=== PATIENT | female | born 1985 | race Caucasian/White ===

== ENCOUNTER → 2017-10-09 16:49 | Emergency (ER) | payer MEDICAID, OTHER ==
[2017-10-09 16:59] VITALS: BP 136/71
--- NOTE | 2017-10-09 19:26 | UC ---
Basim Kellogg Nikita, scribed for Leonides Ny MD on 10/09/17 at 1714 . Ear Complaint HPI - HPI Summary HPI Summary: This patient is a 32 year old F presenting to [facility] with a chief complaint of L ear pain and dizziness since 5 days ago. The L ear pain is described as pressure and constant. The dizziness is intermittent with episodes that last a couple seconds (2 episodes today). The patient rates the pain 4/10 in severity. Symptoms aggravated by nothing. Symptoms alleviated by Ibuprofen (relieves pain for only a couple hours then returns). - History of Current Complaint Chief Complaint: UCEar Stated Complaint: PRESSURE BEHIND EAR, AND DIZZINESS Time Seen by Provider: 10/09/17 17:02 Hx Obtained From: Patient Hx Last Menstrual Period: one week ago Onset/Duration: Sudden Onset, Lasting Days, Still Present Severity Initially: Moderate Severity Currently: Moderate Pain Intensity: 4 Pain Scale Used: 0-10 Numeric Aggravating Factors: Nothing Alleviating Factors: OTC Meds - ibuprofen (relieves for only a couple hours) - Allergies/Home Medications Allergies/Adverse Reactions: Allergies Allergy/AdvReac Type Severity Reaction Status Date / Time No Known Allergies Allergy Verified 10/09/17 17:00 Home Medications: Home Medications Ibuprofen TAB* [Motrin TAB* 600 MG] 600 mg PO DAILY 10/09/17 [History Confirmed 10/09/17] PMH/Surg Hx/FS Hx/Imm Hx Endocrine History: Other Other Endocrine History: No DM Cardiovascular History: Other Other Cardiovascular History: No CAD, HTN - Surgical History Surgical History: Yes Surgery Procedure, Year, and Place: TUBAL LIGATION JANUARY 2013 - Family History Known Family History: Positive: Hypertension, Diabetes - Social History Alcohol Use: Occasionally Substance Use Type: None Smoking Status (MU): Current Every Day Smoker Review of Systems ENT: Ear Ache - L ear pain (pressure) Neurological: Other - dizziness (intermittent with episodes that last a couple seconds) All Other Systems Reviewed And Are Negative: Yes Physical Exam - Summary Physical Exam Summary: VITAL SIGNS: Reviewed. GENERAL: ~Patient is a well-developed and nourished FEMALE who is lying comfortable in the stretcher. ~Patient is not in any acute respiratory distress. HEAD AND FACE: Normocephalic. EYES: PERRLA, EOMI x 2. EARS: Hearing grossly intact. Left TM is erythematous and bulging. MOUTH: Oropharynx within normal limits. NECK: Supple, trachea is midline, no adenopathy, no JVD, no carotid bruit. CHEST: Symmetric, no tenderness at palpation LUNGS: Clear to auscultation bilaterally. No wheezing or crackles. CVS: Regular rate and rhythm, S1 and S2 present, no murmurs or gallops appreciated. ABDOMEN: Soft, non-tender. Bowel sounds are normal. No abdominal abnormal pulsations. EXTREMITIES: Full ROM in all major joints, no edema, no cyanosis or clubbing. NEURO: Alert and oriented x 3. No acute neurological deficits. Speech is normal and follows commands. SKIN: Dry and warm Triage Information Reviewed: Yes Vital Signs: Initial Vital Signs Temp 97.9 F 10/09/17 16:57 Pulse 74 10/09/17 16:57 Resp 12 10/09/17 16:57 BP 136/71 10/09/17 16:57 Pulse Ox 99 10/09/17 16:57 Vital Signs Reviewed: Yes Ear Complaint Course/Dx - Course Course Of Treatment: This patient is a 32 year old F presenting to [facility] with a chief complaint of L ear pain and dizziness since 5 days ago. The patient will be given Rx for Augmentin for dx of otitis media. She will be discharged home with instructions to follow up with her PCP. The pt is hemodynamically stable, alert and oriented x3. Patient was instructed to return to the urgent care or go to ER immediately if any of the symptoms return or worsens. Plan of care was discussed with the patient, and patient understands and agrees. All questions were answered to patient satisfaction. There were no further complaints or concerns. - Differential Dx/Diagnosis Differential Diagnosis/HQI/PQRI: Otitis Media Provider Diagnoses: otitis media Discharge - Sign-Out/Discharge Documenting (check all that apply): Discharge - Discharge Plan Condition: Stable Disposition: HOME Prescriptions: Amoxicillin/Clavulanate TAB* [Augmentin TAB 875*] 875 mg PO BID #20 tab Referrals: [facility] [place] [facility] [Outside] No Primary Care Phys,NOPCP [Primary Care Provider] - The documentation as recorded by the Basim rivas Nikita accurately reflects the service I personally performed and the decisions made by , Leonides Ny MD.
== END | disposition home or self-care (01) ==
LOC: UCEAST 16:49
DX: H66.92 Otitis media, unspecified, left ear (principal); R42 Dizziness and giddiness; F17.210 Nicotine dependence, cigarettes, uncomplicated
CPT/HCPCS: 99202; G0463

== ENCOUNTER 2019-01-01 17:47 | Emergency (ER) | payer OTHER ==
[2019-01-01 18:02] VITALS: BP 116/60
--- NOTE | 2019-01-01 19:58 | UC ---
Lower Extremity/Ankle HPI - HPI Summary HPI Summary: 33-year-old woman comes in with a chief complaint of right lower leg pain and swelling. Is been going on for more than a week. Bit of pain and swelling is in the lower calf primarily on the medial posterior aspect. Pain is worse with movement and palpation. Patient does not know of any specific trauma. No complaint of shortness of breath chest pain. No fevers or chills feels well otherwise. Has taken some ibuprofen. - History of Current Complaint Chief Complaint: UCLowerExtremity Stated Complaint: SOFT TISSUE Time Seen by Provider: 01/01/19 19:40 Hx Last Menstrual Period: [id number] Pain Intensity: 3 - Allergies/Home Medications Allergies/Adverse Reactions: Allergies Allergy/AdvReac Type Severity Reaction Status Date / Time No Known Allergies Allergy Verified 10/09/17 17:00 PMH/Surg Hx/FS Hx/Imm Hx Previously Healthy: Yes - Surgical History Surgical History: Yes Surgery Procedure, Year, and Place: TUBAL LIGATION JANUARY 2013 - Family History Known Family History: Positive: Hypertension, Diabetes - Social History Alcohol Use: Rare Substance Use Type: None Smoking Status (MU): Current Some Day Smoker Review of Systems All Other Systems Reviewed And Are Negative: Yes Constitutional: Positive: Negative Skin: Positive: Negative Eyes: Positive: Negative ENT: Positive: Negative Respiratory: Positive: Negative Cardiovascular: Positive: Negative Gastrointestinal: Positive: Negative Motor: Positive: Negative Neurovascular: Positive: Negative Musculoskeletal: Positive: Other: - SEE HPI Neurological: Positive: Negative Psychological: Positive: Negative Is Patient Immunocompromised?: No Physical Exam Triage Information Reviewed: Yes Appearance: Well-Appearing, No Pain Distress, Well-Nourished Vital Signs: Initial Vital Signs Temp 98.3 F 01/01/19 17:55 Pulse 85 01/01/19 17:55 Resp 16 01/01/19 17:55 BP 116/60 01/01/19 17:55 Pulse Ox 100 01/01/19 17:55 Vital Signs Reviewed: Yes Eye Exam: Normal Eyes: Positive: Conjunctiva Clear Neck: Positive: Supple Respiratory: Positive: No respiratory distress Musculoskeletal: Positive: Other: - Patient is tender to palpation with some swelling in the distal right medial posterior calf. The Achilles tendon is intact. As I palpate up the Achilles tendon just on its proximal aspect patient starts to be tender to palpation this with the swelling is. Ankle has full range of motion but it does increase the pain. There is no tenderness in the proximal calf or in the popliteal region. Knee has full range of motion. The area swelling is not hot to touch. Neurological: Positive: Alert Psychological: Positive: Age Appropriate Behavior Skin Exam: Normal Lower Extremity Course/Dx - Course Course Of Treatment: The patient's right lower medial posterior calf is swollen and tender to palpation. On examination it appears to be more of a muscle strain tendinitis inflammation. Superficial thrombophlebitis is also a possibility. She is nontender in the proximal calf. However I did recommend getting a venous Doppler of the leg. Ultrasound is no longer available here in our clinic. I discussed the options of going to the emergency department to the ultrasound this evening or returning here in the morning to get the venous Doppler here. If she gets worse she is to get reevaluated sooner in the emergency department. - Differential Dx/Diagnosis Provider Diagnosis: Pain of right calf Discharge - Sign-Out/Discharge Documenting (check all that apply): Patient Departure All imaging exams completed and their final reports reviewed: No Studies - Discharge Plan Condition: Stable Disposition: HOME Patient Education Materials: Leg Pain (ED) Referrals: [facility] [place] [facility] [Outside] Additional Instructions: FOLLOW UP WITH YOUR DOCTOR. TAKE IBUPROFEN DIRECTED, ICE, ELEVATE AND REST THE LEG. I RECOMMEND GETTING AN ULTRASOUND OF YOUR RIGHT LEG TO EVALUATE FOR A BLOOD CLOT OR THROMBOPHLEBITIS. YOU CAN GET AN ULTRASOUND DONE TONIGHT IN THE EMERGENCY DEPARTMENT OR HERE IF YOU RETURN HERE TOMORROW IN THE MORNING. GO TO THE EMERGENCY DEPARTMENT SOONER IF YOUR CONDITION WORSENS; CHEST PAIN, SHORTNESS OF BREATH OR ANY QUESTIONS OR CONCERNS. - Billing Disposition and Condition Condition: STABLE Disposition: Home
== END 2019-01-01 20:15 | disposition home or self-care (01) ==
LOC: UCEAST 17:47
DX: M79.661 Pain in right lower leg (principal); M79.89 Other specified soft tissue disorders; F17.200 Nicotine dependence, unspecified, uncomplicated
CPT/HCPCS: 99212; G0463

== ENCOUNTER 2019-01-01 20:37 | Emergency (ER) | payer OTHER ==
--- NOTE | 2019-01-01 22:35 | ED ---
Lower Extremity - HPI Summary HPI Summary: 33-year-old female presents with right calf pain for the past couple days. She states she noticed some swelling to the calf. She denies any family history of blood clots. No recent travel. Not on control. Denies any chest pressures or shortness of breath. No injury. States that occasionally cramps. Has no medical conditions. - History of Current Complaint Chief Complaint: EDExtremityLower Stated Complaint: BUMP OM LT LEG PER PT Time Seen by Provider: 01/01/19 20:47 Hx Last Menstrual Period: [id number] Pain Intensity: 4 - Allergies/Home Medications Allergies/Adverse Reactions: Allergies Allergy/AdvReac Type Severity Reaction Status Date / Time No Known Allergies Allergy Verified 10/09/17 17:00 PMH/Surg Hx/FS Hx/Imm Hx Endocrine/Hematology History: Reports: Hx Anemia - DURING ONLY Denies: Hx Diabetes Cardiovascular History: Denies: Hx Congestive Heart Failure GI History: Reports: Hx Gastroesophageal Reflux Disease - OCCASIONAL - NO MEDS Denies: Other GI Disorders History: Denies: Hx Renal Disease, Other Problems/Disorders Sensory History: Reports: Hx Contacts or Glasses - GLASSES Denies: Hx Hearing Aid Opthamlomology History: Reports: Hx Contacts or Glasses - GLASSES - Surgical History Surgery Procedure, Year, and Place: TUBAL LIGATION JANUARY 2013 - Immunization History Date of Tetanus Vaccine: 10/2012 Date of Influenza Vaccine: none Immunizations Up to Date: Yes Infectious Disease History: No Infectious Disease History: Denies: Traveled Outside the [place] in Last 30 Days - Family History Known Family History: Positive: Hypertension, Diabetes - Social History Alcohol Use: Rare Substance Use Type: Reports: None Smoking Status (MU): Current Some Day Smoker Review of Systems Negative: Fever Negative: Chest Pain Negative: Shortness Of Breath Positive: Myalgia - right calf pain All Other Systems Reviewed And Are Negative: Yes Physical Exam Triage Information Reviewed: Yes Vital Signs On Initial Exam: Initial Vitals Temp Pulse Resp BP Pulse Ox 97.9 F 72 16 124/78 99 01/01/19 20:42 01/01/19 20:42 01/01/19 20:42 01/01/19 20:42 01/01/19 20:42 Vital Signs Reviewed: Yes Appearance: Positive: Well-Appearing Skin: Positive: Warm, Dry Head/Face: Positive: Normal Head/Face Inspection Eyes: Positive: Normal, Conjunctiva Clear ENT: Positive: Pharynx normal Respiratory/Lung Sounds: Positive: Clear to Auscultation, Breath Sounds Present Cardiovascular: Positive: Normal, RRR Musculoskeletal: Positive: Strength/ROM Intact - right leg, Other - good pulses , tenderness right claf. Negative: Edema Right Neurological: Positive: Normal Psychiatric: Positive: Normal Diagnostics - Vital Signs Vital Signs Temp Pulse Resp BP Pulse Ox 01/01/19 20:42 97.9 F 72 16 124/78 99 - Laboratory Lab Statement: Any lab studies that have been ordered have been reviewed, and results considered in the medical decision making process. - Ultrasound No standard instances Ultrasound Interpretation Completed By: Radiologist Summary of Ultrasound Findings: IMPRESSION: No acute findings. No evidence of deep vein thrombosis. Lower Extremity Course/Dx - Course Course Of Treatment: 33-year-old female presents with right calf pain for the past couple days. She states she noticed some swelling to the calf. She denies any family history of blood clots. No recent travel. Not on control. Denies any chest pressures or shortness of breath. No injury. States that occasionally cramps. Has no medical conditions. On exam tenderness her right calf. Neurovascular intact. Ultrasound shows no DVT. Told to ice elevate. Patient understands agrees with plan. - Diagnoses Differential Diagnosis/HQI/PQRI: Positive: DVT, Sprain, Strain Provider Diagnoses: Pain of left calf Discharge - Sign-Out/Discharge Documenting (check all that apply): Patient Departure Patient Received Moderate/Deep Sedation with Procedure: No - Discharge Plan Condition: Good Disposition: HOME Patient Education Materials: Leg Pain (ED) Referrals: No Primary Care Phys,NOPCP [Primary Care Provider] - Additional Instructions: Ice Elevate Take Tylenol or ibuprofen for pain every 6 hours Follow up with primary within 5 days Return to ED if develop any new or worsening symptoms - Billing Disposition and Condition Condition: GOOD Disposition: Home
[2019-01-01 23:32] VITALS: BP 0/0
== END 2019-01-01 23:31 | disposition home or self-care (01) ==
LOC: ED 20:37
DX: M79.661 Pain in right lower leg (principal)
CPT/HCPCS: 99281